=== PATIENT | male | born 1980 | race African-American/Black ===

== ENCOUNTER 2017-03-28 15:47 | Emergency (ER) | payer OTHER ==
[~2017-03-28] VITALS: Ht 180.3 cm; Wt 163.3 kg
[2017-03-28 16:05] VITALS: BP 138/84
[2017-03-28] MEDS ORDERED: Tylenol #3 tab (300mg/30mg) ORAL ONE (17:00)
--- NOTE | 2017-03-28 17:22 | Emergency Room Report ---
History of Present Illness General Chief Complaint: Upper Extremity Injury Source: Patient Present Illness HPI 36 YO Male presents to the ED c/o recently dx'd distal left radius fx, with loose fitting splint from alternate ED, and continued pain that is 8/10 in severity localized to the left wrist, and described as throbbing. denies new trauma or fall. pt. has not filled his rx's and has them with him. PT. reports pain increased with twisting his wrist to hold his arm up against his body, pt. was not given a sling. pt. denies erythema, numbness or skin color change to the fingers/hand of the splinted wrist. Denies numbness tingling or loss of sensation or gross motor movements of the extremities, incontinence of bowel or bladder. Denies CP, Palpitations, LOC, AMS, dizziness, Changes in Vision, Sensation, paresthesias, or a sudden severe headache. Allergies: Coded Allergies: No Known Allergies (Unverified , 03/28/17) Patient History Past Medical History: see triage record Past Surgical History: none Pertinent Family History: none Immunizations: UTD Reviewed Nursing Documentation: PMH: Agreed, PSxH: Agreed Nursing Documentation-PMH Past Medical History: No Stated History Review of Systems All Other Systems: negative except mentioned in HPI Physical Exam Vital Signs Date Time Temp Pulse Resp B/P (MAP) Pulse Ox O2 Delivery O2 Flow Rate FiO2 03/28/17 15:53 98.1 93 19 138/84 97 Room Air Sp02 EP Interpretation: reviewed, normal General Appearance: no apparent distress, alert, GCS 15, non-toxic Head: normocephalic, atraumatic Eyes: bilateral eye normal inspection, bilateral eye PERRL ENT: hearing grossly normal, normal voice Neck: full range of motion Respiratory: lungs clear, normal breath sounds Cardiovascular #1: regular rate, rhythm, normal capillary refill Cardiovascular #2: 2+ radial (R), 2+ radial (L) Musculoskeletal: back normal, gait/station normal, tender - TTP to the medial left wrist, poor fitting volar splint, pt. is NVI. Neurologic: alert, oriented x3, responsive, motor strength/tone normal, sensory intact, speech normal Skin: normal color, no rash, warm/dry, well hydrated Medical Decision Making PA Attestation Dr. Peres is my supervising Physician whom patient management has been discussed with. Diagnostic Impression: Primary Impression: Distal radius fracture, left Qualified Codes: S52.502A - Unspecified fracture of the lower end of left radius, initial encounter for closed fracture ER Course 36 YO Male presents to the ED c/o recently dx'd distal left radius fx, with loose fitting splint from alternate ED, and continued pain that is 8/10 in severity localized to the left wrist, and described as throbbing. denies new trauma or fall. pt. has not filled his rx's and has them with him. PT. reports pain increased with twisting his wrist to hold his arm up against his body, pt. was not given a sling. pt. denies erythema, numbness or skin color change to the fingers/hand of the splinted wrist. Denies numbness tingling or loss of sensation or gross motor movements of the extremities, incontinence of bowel or bladder. Denies CP, Palpitations, LOC, AMS, dizziness, Changes in Vision, Sensation, paresthesias, or a sudden severe headache. Ddx considered but are not limited to Fracture, dislocation, contusion, Sprain/ Strain/Spasm, compartment syndrome, need for proper immobilization of fractured extremity. Vital signs: are WNL, pt. is afebrile H&PE are most consistent with previously diagnosed distal radius fracture with ill fitting /loose volar wrist splint. pt. has moderate mobility despite being immobilized. pt. presents with d/c paperwork from [facility]. ORDERS: - none required at this time , no new trauma or fall. ED INTERVENTIONS: - Sugar Tong Splint applied to the left wrist/forearm by integrated pest management technician. Pt. remains neurovascularly intact. - Left arm Sling applied by integrated pest management technician. Pt. remains neurovascularly intact. DISCHARGE: At this time pt. is stable for d/c to home. Will provide printed patient care instructions, and any necessary prescriptions. Care plan and follow up instructions have been discussed with the patient prior to discharge. Last Vital Signs Date Time Temp Pulse Resp B/P (MAP) Pulse Ox O2 Delivery O2 Flow Rate FiO2 03/28/17 16:05 98.1 19 138/84 97 Room Air 03/28/17 15:53 93 Disposition: HOME, SELF-CARE Condition: Stable Scripts Acetaminophen* (TYLENOL EXTRA STRENGTH*) 500 Mg Tablet 500 MG ORAL Q6H, #20 TAB 0 Refills Prov: Erendira Dash 03/28/17 Referrals: [facility]ERR[facility] (PCP) Patient Instructions: Radial Fracture Additional Instructions: Take medications as directed. Follow up with a Orthopedic in 3-5 days, even if your symptoms have resolved. --Please review list of primary care clinics, if you do not already have a primary care provider Return sooner to ED if new symptoms occur, or current symptoms become worse. - Please note that this Emergency Department Report was dictated using [email or web address] machine operator technology software, occasionally this can lead to erroneous entry secondary to interpretation by the dictation equipment. Erendira Dash Mar 28, 2017 17:22
--- NOTE | 2017-03-28 17:22 | Emergency Room Report ---
History of Present Illness General Chief Complaint: Upper Extremity Injury Source: Patient Present Illness HPI 36 YO Male presents to the ED c/o recently dx'd distal left radius fx, with loose fitting splint from alternate ED, and continued pain that is 8/10 in severity localized to the left wrist, and described as throbbing. denies new trauma or fall. pt. has not filled his rx's and has them with him. PT. reports pain increased with twisting his wrist to hold his arm up against his body, pt. was not given a sling. pt. denies erythema, numbness or skin color change to the fingers/hand of the splinted wrist. Denies numbness tingling or loss of sensation or gross motor movements of the extremities, incontinence of bowel or bladder. Denies CP, Palpitations, LOC, AMS, dizziness, Changes in Vision, Sensation, paresthesias, or a sudden severe headache. Allergies: Coded Allergies: No Known Allergies (Unverified , 03/28/17) Patient History Past Medical History: see triage record Past Surgical History: none Pertinent Family History: none Immunizations: UTD Reviewed Nursing Documentation: PMH: Agreed, PSxH: Agreed Nursing Documentation-PMH Past Medical History: No Stated History Review of Systems All Other Systems: negative except mentioned in HPI Physical Exam Vital Signs Date Time Temp Pulse Resp B/P (MAP) Pulse Ox O2 Delivery O2 Flow Rate FiO2 03/28/17 15:53 98.1 93 19 138/84 97 Room Air Sp02 EP Interpretation: reviewed, normal General Appearance: no apparent distress, alert, GCS 15, non-toxic Head: normocephalic, atraumatic Eyes: bilateral eye normal inspection, bilateral eye PERRL ENT: hearing grossly normal, normal voice Neck: full range of motion Respiratory: lungs clear, normal breath sounds Cardiovascular #1: regular rate, rhythm, normal capillary refill Cardiovascular #2: 2+ radial (R), 2+ radial (L) Musculoskeletal: back normal, gait/station normal, tender - TTP to the medial left wrist, poor fitting volar splint, pt. is NVI. Neurologic: alert, oriented x3, responsive, motor strength/tone normal, sensory intact, speech normal Skin: normal color, no rash, warm/dry, well hydrated Medical Decision Making PA Attestation Dr. Peres is my supervising Physician whom patient management has been discussed with. Diagnostic Impression: Primary Impression: Distal radius fracture, left Qualified Codes: S52.502A - Unspecified fracture of the lower end of left radius, initial encounter for closed fracture ER Course 36 YO Male presents to the ED c/o recently dx'd distal left radius fx, with loose fitting splint from alternate ED, and continued pain that is 8/10 in severity localized to the left wrist, and described as throbbing. denies new trauma or fall. pt. has not filled his rx's and has them with him. PT. reports pain increased with twisting his wrist to hold his arm up against his body, pt. was not given a sling. pt. denies erythema, numbness or skin color change to the fingers/hand of the splinted wrist. Denies numbness tingling or loss of sensation or gross motor movements of the extremities, incontinence of bowel or bladder. Denies CP, Palpitations, LOC, AMS, dizziness, Changes in Vision, Sensation, paresthesias, or a sudden severe headache. Ddx considered but are not limited to Fracture, dislocation, contusion, Sprain/ Strain/Spasm, compartment syndrome, need for proper immobilization of fractured extremity. Vital signs: are WNL, pt. is afebrile H&PE are most consistent with previously diagnosed distal radius fracture with ill fitting /loose volar wrist splint. pt. has moderate mobility despite being immobilized. pt. presents with d/c paperwork from [facility]. ORDERS: - none required at this time , no new trauma or fall. ED INTERVENTIONS: - Sugar Tong Splint applied to the left wrist/forearm by dictaphone technician. Pt. remains neurovascularly intact. - Left arm Sling applied by dictaphone technician. Pt. remains neurovascularly intact. DISCHARGE: At this time pt. is stable for d/c to home. Will provide printed patient care instructions, and any necessary prescriptions. Care plan and follow up instructions have been discussed with the patient prior to discharge. Last Vital Signs Date Time Temp Pulse Resp B/P (MAP) Pulse Ox O2 Delivery O2 Flow Rate FiO2 03/28/17 16:05 98.1 19 138/84 97 Room Air 03/28/17 15:53 93 Disposition: HOME, SELF-CARE Condition: Stable Scripts Acetaminophen* (TYLENOL EXTRA STRENGTH*) 500 Mg Tablet 500 MG ORAL Q6H, #20 TAB 0 Refills Prov: Erendira Dash 03/28/17 Referrals: [facility]ERR[facility] (PCP) Patient Instructions: Radial Fracture Additional Instructions: Take medications as directed. Follow up with a Orthopedic in 3-5 days, even if your symptoms have resolved. --Please review list of primary care clinics, if you do not already have a primary care provider Return sooner to ED if new symptoms occur, or current symptoms become worse. - Please note that this Emergency Department Report was dictated using Celc[employer]building serviceman technology software, occasionally this can lead to erroneous entry secondary to interpretation by the dictation equipment. Erendira Dash Mar 28, 2017 17:22
--- NOTE | 2017-03-28 17:22 | Emergency Room Report ---
History of Present Illness General Chief Complaint: Upper Extremity Injury Source: Patient Present Illness HPI 36 YO Male presents to the ED c/o recently dx'd distal left radius fx, with loose fitting splint from alternate ED, and continued pain that is 8/10 in severity localized to the left wrist, and described as throbbing. denies new trauma or fall. pt. has not filled his rx's and has them with him. PT. reports pain increased with twisting his wrist to hold his arm up against his body, pt. was not given a sling. pt. denies erythema, numbness or skin color change to the fingers/hand of the splinted wrist. Denies numbness tingling or loss of sensation or gross motor movements of the extremities, incontinence of bowel or bladder. Denies CP, Palpitations, LOC, AMS, dizziness, Changes in Vision, Sensation, paresthesias, or a sudden severe headache. Allergies: Coded Allergies: No Known Allergies (Unverified , 03/28/17) Patient History Past Medical History: see triage record Past Surgical History: none Pertinent Family History: none Immunizations: UTD Reviewed Nursing Documentation: PMH: Agreed, PSxH: Agreed Nursing Documentation-PMH Past Medical History: No Stated History Review of Systems All Other Systems: negative except mentioned in HPI Physical Exam Vital Signs Date Time Temp Pulse Resp B/P (MAP) Pulse Ox O2 Delivery O2 Flow Rate FiO2 03/28/17 15:53 98.1 93 19 138/84 97 Room Air Sp02 EP Interpretation: reviewed, normal General Appearance: no apparent distress, alert, GCS 15, non-toxic Head: normocephalic, atraumatic Eyes: bilateral eye normal inspection, bilateral eye PERRL ENT: hearing grossly normal, normal voice Neck: full range of motion Respiratory: lungs clear, normal breath sounds Cardiovascular #1: regular rate, rhythm, normal capillary refill Cardiovascular #2: 2+ radial (R), 2+ radial (L) Musculoskeletal: back normal, gait/station normal, tender - TTP to the medial left wrist, poor fitting volar splint, pt. is NVI. Neurologic: alert, oriented x3, responsive, motor strength/tone normal, sensory intact, speech normal Skin: normal color, no rash, warm/dry, well hydrated Medical Decision Making PA Attestation Dr. Peres is my supervising Physician whom patient management has been discussed with. Diagnostic Impression: Primary Impression: Distal radius fracture, left Qualified Codes: S52.502A - Unspecified fracture of the lower end of left radius, initial encounter for closed fracture ER Course 36 YO Male presents to the ED c/o recently dx'd distal left radius fx, with loose fitting splint from alternate ED, and continued pain that is 8/10 in severity localized to the left wrist, and described as throbbing. denies new trauma or fall. pt. has not filled his rx's and has them with him. PT. reports pain increased with twisting his wrist to hold his arm up against his body, pt. was not given a sling. pt. denies erythema, numbness or skin color change to the fingers/hand of the splinted wrist. Denies numbness tingling or loss of sensation or gross motor movements of the extremities, incontinence of bowel or bladder. Denies CP, Palpitations, LOC, AMS, dizziness, Changes in Vision, Sensation, paresthesias, or a sudden severe headache. Ddx considered but are not limited to Fracture, dislocation, contusion, Sprain/ Strain/Spasm, compartment syndrome, need for proper immobilization of fractured extremity. Vital signs: are WNL, pt. is afebrile H&PE are most consistent with previously diagnosed distal radius fracture with ill fitting /loose volar wrist splint. pt. has moderate mobility despite being immobilized. pt. presents with d/c paperwork from [facility]. ORDERS: - none required at this time , no new trauma or fall. ED INTERVENTIONS: - Sugar Tong Splint applied to the left wrist/forearm by computer forensics technician. Pt. remains neurovascularly intact. - Left arm Sling applied by computer forensics technician. Pt. remains neurovascularly intact. DISCHARGE: At this time pt. is stable for d/c to home. Will provide printed patient care instructions, and any necessary prescriptions. Care plan and follow up instructions have been discussed with the patient prior to discharge. Last Vital Signs Date Time Temp Pulse Resp B/P (MAP) Pulse Ox O2 Delivery O2 Flow Rate FiO2 03/28/17 16:05 98.1 19 138/84 97 Room Air 03/28/17 15:53 93 Disposition: HOME, SELF-CARE Condition: Stable Scripts Acetaminophen* (TYLENOL EXTRA STRENGTH*) 500 Mg Tablet 500 MG ORAL Q6H, #20 TAB 0 Refills Prov: Erendira Dash 03/28/17 Referrals: [facility]ERR[facility] (PCP) Patient Instructions: Radial Fracture Additional Instructions: Take medications as directed. Follow up with a Orthopedic in 3-5 days, even if your symptoms have resolved. --Please review list of primary care clinics, if you do not already have a primary care provider Return sooner to ED if new symptoms occur, or current symptoms become worse. - Please note that this Emergency Department Report was dictated using Opternativeinvasive cardiovascular technologist technology software, occasionally this can lead to erroneous entry secondary to interpretation by the dictation equipment. Erendira Dash Mar 28, 2017 17:22
[2017-03-28] MEDS ORDERED: TYLENOL EXTRA500 MG ORAL (17:23)
[2017-03-28 17:35] VITALS: BP 134/92
== END 2017-03-28 17:35 | disposition home or self-care (01) ==
LOC: EMR 16:30
DX: S52.502A Unspecified fracture of the lower end of left radius, initial encounter for closed fracture (principal); V18.0XXA Pedal cycle driver injured in noncollision transport accident in nontraffic accident, initial encounter; Y93.55 Activity, bike riding; Y92.89 Other specified places as the place of occurrence of the external cause
CPT/HCPCS: 29125; 99283